=== PATIENT | female | born 1990 | race Caucasian/White ===

== ENCOUNTER 2016-12-07 14:26 | Emergency (ER) | payer MEDICARE | END 2016-12-07 16:20 | disposition home or self-care (01) | LOC: ER 14:26 | DX: O99.612 Diseases of the digestive system complicating pregnancy, second trimester (principal); K11.20 Sialoadenitis, unspecified; Z88.8 Allergy status to other drugs, medicaments and biological substances; Z3A.27 27 weeks gestation of pregnancy | CPT/HCPCS: 36415 ==